=== PATIENT | male | born 2000 | race Caucasian/White ===

== ENCOUNTER 2018-03-06 01:48 | Emergency (ER) | payer OTHER ==
[2018-03-06] MEDS ORDERED: Lidocaine 2% PF * 5 ML VIAL ONE (02:21)
[2018-03-06] MEDS ORDERED: PROCHLORPERAZINE INJ 5 MG/ML 2 ML VIAL ONE (02:23)
[2018-03-06] MEDS ORDERED: HYDROmorphone INJ1* 1 MG/ML SYRINGE ONE (02:23)
--- NOTE | 2018-03-06 02:23 | ED ---
Lower Extremity - HPI Summary HPI Summary: This pt is a 17 y/o male presenting to [facility] via EMS for laceration on left fifth toe today. Pt reports he was cutting wood with an axe when he swung the axe and hit his left foot. Pt notes he was wearing shoes and the axe went through the shoe, sustaining a laceration on left fifth toe. Pt denies any other injuries. Denies any PMHx. - History of Current Complaint Chief Complaint: EDExtremityLower Stated Complaint: TOE INJURY Time Seen by Provider: 03/06/18 02:10 Hx Obtained From: Patient Mechanism Of Injury: Other - cut by an axe Onset of Pain: Immediate Onset/Duration: Minutes Severity Currently: Moderate Pain Intensity: 7 Pain Scale Used: 0-10 Numeric Timing: Lasting Hours Location: Is Discrete @ - left fifth toe Character Of Pain: Aching Associated Signs And Symptoms: Positive: Negative Aggravating Factor(s): Nothing Alleviating Factor(s): Nothing Related History: Other - while cutting wood cut toe with axe - Allergies/Home Medications Allergies/Adverse Reactions: Allergies Allergy/AdvReac Type Severity Reaction Status Date / Time No Known Allergies Allergy Verified 03/06/18 01:53 PMH/Surg Hx/FS Hx/Imm Hx Endocrine/Hematology History: Denies: Hx Diabetes Cardiovascular History: Denies: Hx Hypertension Infectious Disease History: No Infectious Disease History: Denies: Traveled Outside the [place] in Last 30 Days - Family History Known Family History: Negative: Cardiac Disease, Hypertension, Diabetes - Social History Alcohol Use: Occasionally Substance Use Type: Reports: None Smoking Status (MU): Current Some Day Smoker Review of Systems Negative: Fever, Chills Cardiovascular: Negative Respiratory: Negative Gastrointestinal: Negative Skin: Other - POS: laceration on left pinky toe All Other Systems Reviewed And Are Negative: Yes Physical Exam - Summary Physical Exam Summary: VITAL SIGNS: Reviewed. GENERAL: Patient is a well-developed and nourished male who is lying comfortable in the stretcher. Patient is not in any acute respiratory distress. HEAD AND FACE: No signs of trauma. No ecchymosis, hematomas or skull depressions. No sinus tenderness. EYES: PERRLA, EOMI x 2, No injected conjunctiva, no nystagmus. EARS: Hearing grossly intact. Ear canals and tympanic membranes are within normal limits. MOUTH: Oropharynx within normal limits. NECK: Supple, trachea is midline, no adenopathy, no JVD, no carotid bruit, no c- spine tenderness, neck with full ROM. CHEST: Symmetric, no tenderness at palpation LUNGS: Clear to auscultation bilaterally. No wheezing or crackles. CVS: Regular rate and rhythm, S1 and S2 present, no murmurs or gallops appreciated. ABDOMEN: Soft, non-tender. No signs of distention. EXTREMITIES: LLE: Laceration over the tip of the left fifth toe with avulsion/ amputation of the distal phalanx. Approximate 2 inch laceration extending from the sole of the left foot through the 4t interdigital space to the dorsum of the foot. NEURO: Alert and oriented x 3. No acute neurological deficits. Speech is normal and follows commands. SKIN: Dry and warm Triage Information Reviewed: Yes Vital Signs On Initial Exam: Initial Vitals Temp Pulse Resp BP Pulse Ox 99.3 F 84 16 140/93 97 03/06/18 01:49 03/06/18 01:49 03/06/18 01:49 03/06/18 01:49 03/06/18 01:49 Vital Signs Reviewed: Yes Procedures - Laceration/Wound Repair 1 Location: lower extremity - left fifth toe Anesthesia: Digital - digital block, 2.0%, Lido Length, Depth and Shape: Avulse piece irrigated and sutured back to the left fifth toe. Laceration/Wound Explored: clean Suture Type: Prolene - 4-O Number of Sutures: 8 2 Location: lower extremity - laceration on fourth interdigital space Anesthesia: 2.0%, Lido Length, Depth and Shape: 2 inches in length Laceration/Wound Explored: clean Suture Type: Prolene - 3-O Number of Sutures: 6 Diagnostics - Vital Signs Vital Signs Temp Pulse Resp BP Pulse Ox 03/06/18 01:49 99.3 F 84 16 140/93 97 - Laboratory Lab Statement: Any lab studies that have been ordered have been reviewed, and results considered in the medical decision making process. - Radiology Left foot XR Radiology Interpretation Completed By: ED Physician Summary of Radiographic Findings: XR shows digital fracture of left fifth distal phalanx. Lower Extremity Course/Dx - Course Assessment/Plan: Pt is a 17 y/o male who presents to the ED via EMS for laceration on left fifth toe today. Pt reports he was cutting wood with an axe when he swung the axe and hit his left foot. Pt notes he was wearing shoes and the axe went through the shoe, sustaining a laceration on left fifth toe. Pt denies any other injuries. Denies any PMHx. In the ED course the pt was given compazine, dilaudid, Keflex. Left foot XR shows fracture of the left fifth distal phalanx. Pending official radiology report. I performed two laceration repairs. With digital block and 2% lidocaine, the avulse piece was irrigated and sutured back to the left fifth toe, requiring 8 stitches of prolene 4-O. Two inch laceration on fourth interdigital space required 6 stitches with prolene 3-O. Pt tolerated the procedure well. Please see procedure note. Pt was given crutches to ambulate. He was given instructions to not bear weight, use crutches, keep wound dry, and not wear shoes. Pt will be discharged home with follow up from [facility] on 03/09/18, for wound check. He was given prescriptions for Keflex and Motrin. Pt was given instructions to return to the ED for any new or worsening symptoms. Dx: left fifth toe laceration with avulsion, left foot laceration, fracture of left fifth toe. - Diagnoses Provider Diagnoses: Laceration of fifth toe, left, Avulsion of toe, Laceration of left foot, Fracture of fifth toe, left, open Discharge - Sign-Out/Discharge Documenting (check all that apply): Patient Departure - Discharge home - Discharge Plan Condition: Stable Disposition: HOME Prescriptions: Cephalexin CAP* [Keflex CAP*] 500 mg PO QID #30 cap Ibuprofen TAB* [Motrin TAB* 800 MG] 800 mg PO Q6H PRN #30 tab PRN Reason: Pain (Dental) Patient Education Materials: Care For Your Stitches (ED), Laceration (ED), Toe Fracture (ED), Skin Avulsion (ED) Forms: *School Release Referrals: [facility] [Outside] Additional Instructions: Follow up with [facility] on 03/09/18, for wound re-check. No weight bearing. Use crutches to ambulate. Do not use shoes. Keep the wound dry. RETURN TO EMERGENCY DEPARTMENT FOR ANY NEW OR WORSENING SYMPTOMS. - Attestation Statements Document Initiated by Scribe: Yes Documenting Scribe: Nicole Cloud Provider For Whom Scribe is Documenting (Include Credential): Sallie Mariano MD Scribe Attestation: Nicole Nash, scribed for Sallie Mariano MD on 03/06/18 at 0402.
[2018-03-06] MEDS ORDERED: HYDROmorphone INJ* 2 MG/ML CARPUJECT SYRINGE IM ONE (02:31)
[2018-03-06] MEDS ORDERED: PROCHLORPERAZINE INJ 5 MG/ML 2 ML VIAL IM ONE (02:34)
[2018-03-06] MEDS ORDERED: Cephalexin CAP* 500 MG PO ONE (02:58)
[2018-03-06 04:15] VITALS: BP 129/81
== END 2018-03-06 04:10 | disposition home or self-care (01) ==
LOC: ED 01:48
DX: S92.532B Displaced fracture of distal phalanx of left lesser toe(s), initial encounter for open fracture (principal); W27.0XXA Contact with workbench tool, initial encounter; Y93.89 Activity, other specified; Y92.89 Other specified places as the place of occurrence of the external cause; F17.200 Nicotine dependence, unspecified, uncomplicated
CPT/HCPCS: 12002; 96372; 99283; A9270-GY; J0780; J1170

== ENCOUNTER 2018-03-07 23:20 | Observation (INO) | payer OTHER ==
[2018-03-07] MEDS ORDERED: ceFAZolin 1 GM ADVAN(*) 1 GM in NS 0.9% 50 ML* 50 ML IVPB ONE (23:51)
--- NOTE | 2018-03-08 | ED ---
Lower Extremity - HPI Summary HPI Summary: This patient is a 17 year old M presenting to [facility] accompanied by friend with a chief complaint of left pinky toe pain that began 2 days ago. Patient states the pain began upon chopping his toe when trying to make an architecture model. The patient rates the pain 5/10 in severity. Symptoms aggravated by movement. Symptoms alleviated by nothing. Patient reports numbness in the toe. Patient was seen here 2 days ago after the trauma, and received stitches and an x-ray. Patient states he has been unable to take his prescribed antibiotics as the clinic was closed. - History of Current Complaint Chief Complaint: EDLacSutureRecheck Stated Complaint: LEFT FOOT INJURY 2 DAYS AGO/\RECHECK Time Seen by Provider: 03/07/18 23:46 Hx Obtained From: Patient Mechanism Of Injury: Penetrating Trauma Onset of Pain: Immediate, Post Accident Onset/Duration: Days Severity Initially: Moderate Severity Currently: Moderate Pain Intensity: 5 Pain Scale Used: 0-10 Numeric Timing: Constant Location: Is Discrete @ - Left pinky toe Associated Signs And Symptoms: Positive: Other - Positive numbness of the toe Aggravating Factor(s): Movement Alleviating Factor(s): Nothing Able to Bear Weight: No - Allergies/Home Medications Allergies/Adverse Reactions: Allergies Allergy/AdvReac Type Severity Reaction Status Date / Time No Known Allergies Allergy Verified 03/06/18 01:53 PMH/Surg Hx/FS Hx/Imm Hx Previously Healthy: Yes Endocrine/Hematology History: Denies: Hx Diabetes Cardiovascular History: Denies: Hx Hypertension Infectious Disease History: No Infectious Disease History: Denies: Traveled Outside the [place] in Last 30 Days - Family History Known Family History: Negative: Cardiac Disease, Hypertension, Diabetes - Social History Occupation: Student Lives: Dormitory/Roommates Alcohol Use: Occasionally Hx Substance Use: No Substance Use Type: Reports: None Hx Tobacco Use: Yes Smoking Status (MU): Current Some Day Smoker Review of Systems Positive: Other - Positive left pinky toe pain Positive: Numbness All Other Systems Reviewed And Are Negative: Yes Physical Exam - Summary Physical Exam Summary: Appearance: Well-appearing, Well-nourished, lying in bed comfortable Skin: Warm, dry, no obvious rash Eyes: sclera anicteric, no conjunctival pallor ENT: mucous membranes moist Neck: deferred Respiratory: No signs of respiratory distress Cardiovascular: Appears well perfused, pulses are nml Abdomen: deferred Musculoskeletal: Moving all 4 extremities without obvious discomfort. Sutures are in place. No drainage from wound around sutures. Swelling and erythema on the dorsum of the foot extending from the wound to fdc up the foot. Neurological: Awake and alert, mentation is normal, speech is fluent and appropriate Psychiatric: affect is normal, does not appear anxious or depressed Triage Information Reviewed: Yes Vital Signs On Initial Exam: Initial Vitals Temp Pulse Resp BP Pulse Ox 98.9 F 64 18 134/92 96 03/07/18 23:21 03/07/18 23:21 03/07/18 23:21 03/07/18 23:21 03/07/18 23:21 Vital Signs Reviewed: Yes Diagnostics - Vital Signs Vital Signs Temp Pulse Resp BP Pulse Ox 03/07/18 23:21 98.9 F 64 18 134/92 96 - Laboratory Result Diagrams: 03/07/18 23:53 03/07/18 23:53 Lab Statement: Any lab studies that have been ordered have been reviewed, and results considered in the medical decision making process. Lower Extremity Course/Dx - Course Course Of Treatment: This patient is a 17 year old M presenting to [facility] accompanied by friend with a chief complaint of left pinky toe pain that began 2 days ago. Patient was seen here 2 days ago after the trauma, and received stitches and an x-ray. Patient states he has been unable to take his prescribed antibiotics as the clinic was closed. Physical Exam Findings: Sutures are in place. No drainage from wound around sutures. Swelling and erythema on the dorsum of the foot extending from the wound to fdc up the foot. Bloodwork obtained. In the ED course the patient was given cefazolin. Consult with Dr. Monaco (orthopedics) at 0001. He recommends the stitches be removed, the toe be soaked in warm soapy water, IV antibiotics given, and he will follow up with the patient tomorrow morning. Consult with Dr. Brooks (hospitalist) at 0008. He agreed to admit the patient for further evaluation. The patient is agreeable with this plan. - Diagnoses Provider Diagnoses: Infected wound - Physician Notifications Discussed Care Of Patient With: Jack Monaco Time Discussed With Above Provider: 00:01 Instructed by Provider To: Other - Consult with Dr. Monaco (orthopedics) at 0001. He recommends the stitches be removed, the toe be soaked in warm soapy water, and he will follow up with the patient tomorrow morning. Consult with Dr. Brooks (hospitalist) at 0008. He agreed to admit the patient for further evaluation. Discharge - Sign-Out/Discharge Documenting (check all that apply): Patient Departure - [place] [facility] [place]charge Plan Condition: Stable Disposition: ADMITTED TO [facility] - Billing Disposition and Condition Condition: STABLE Disposition: Admitted to [facility] - Attestation Statements Document Initiated by Hamibe: Yes Documenting Scribe: Fernanda Hartman Provider For Whom Luc is Documenting (Include Credential): Dr. Franklin Mcduffie MD Scribe Attestation: IFernanda, scribed for Dr. Franklin Mcduffie MD on 03/08/18 at 0250. Scribe Documentation Reviewed: Yes Provider Attestation: The documentation as recorded by the Fernanda silva accurately reflects the service I personally performed and the decisions made by me, Dr. Franklin Mcduffie MD
[2018-03-08 00:02] LABS: ABS Basophils 0 10^3/ul (0-0.2); ABS Eosinophils 0.2 10^3/ul (0-0.6); ABS Monocytes 0.5 10^3/ul (0-0.8); ABS Neutrophils 4.8 10^3/ul (1.5-7.7); ABS Nucleated RBC 0 10^3/ul; Hematocrit 40 % (42-52); Hemoglobin 13.6 g/dl (14.0-18.0); Lymphocyte % 35.4 % (25-47); Mean Corpuscular HGB Conc 34 g/dl (31-36); Mean Corpuscular Hemoglobin 31 pg (27-31); Mean Corpuscular Volume 89 fL (80-94); Mean Platelet Volume 7.9 fL (7.4-10.4); Nucleated Red Blood Cells % 0.1; Platelet Count 232 10^3/ul (150-450); Red Blood Count 4.43 10^6/ul (4.00-5.40); Red Cell Distribution Width 14 % (10.5-15); White Blood Count 8.6 10^3/ul (3.5-10.8)
[2018-03-08] MEDS ORDERED: NS 0.9% 50 ML* 50 ML ONE (00:02)
[2018-03-08] MEDS ORDERED: Bupivacaine 0.5% W/EPI SDV* 30 ML VIAL ONE (00:08)
[2018-03-08] MEDS ORDERED: ceFAZolin 1 GM in Dextrose (*) 1 GM/50 ML BAG IVPB ONE (00:10)
[2018-03-08] MEDS ORDERED: Lidocaine 2% EPI 1:200000 MPF*10-20 ML VIAL ONE (00:10)
[2018-03-08] MEDS ORDERED: Ibuprofen TAB* 800 MG PO PRN (00:14)
[2018-03-08] MEDS ORDERED: ED ONCE IVPB ONE (00:15)
[2018-03-08] MEDS ORDERED: CEFAZOLIN 1 GM IVPB ONE (00:15)
[2018-03-08] MEDS ORDERED: [UNRECOGNIZED DRUG - OTHER] IVPB ONE (00:15)
[2018-03-08 00:18] LABS: EGFR Non-African American 70.5 (>60)
[2018-03-08] MEDS ORDERED: ceFAZolin 1 GM ADVAN(*) 1 GM in NS 0.9% 50 ML* 50 ML IVPB SCH (01:00)
[2018-03-08] MEDS: ceFAZolin 1 GM in Dextrose (*) 1 GM/50 ML BAG IVPB SCH ×3 (05:44→17:28)
[2018-03-08] MEDS ORDERED: NS 0.9% w/ 20 Meq KCL 1000 ML* 1,000 ML IV SCH (09:00)
[2018-03-08] MEDS: NS 0.9% 1000 ML* 1,000 ML IV SCH ×2 (12:02→21:44)
--- NOTE | 2018-03-08 12:06 | PN ---
Subjective Date of Service: 03/08/18 Interval History: Patient reports the pain is better controlled today. Pain is currently /. He denies any fever/chills. No n/v/d. Objective Active Medications: Acetaminophen (Tylenol Tab*) 650 mg PO Q4H PRN PRN Reason: FEVER/HEADACHE Cefazolin Sodium/Dextrose (Kefzol 1 Gm In Dextrose Duplex (*)) 1 gm in 50 mls @ 200 mls/hr IVPB Q6H [facility] Last Admin: 03/08/18 11:42 Dose: 200 mls/hr Sodium Chloride (Ns 0.9% 1000 Ml*) 1,000 mls @ 125 mls/hr IV PER RATE [facility] Ibuprofen (Motrin Tab*) 800 mg PO Q6H PRN PRN Reason: PAIN (DENTAL) Last Admin: 03/08/18 08:54 Dose: 800 mg Vital Signs - 8 hr 03/08/18 03/08/18 03/08/18 04:18 07:40 08:00 Temperature 98.4 F 97.6 F Pulse Rate 55 43 Respiratory 16 16 16 Rate Blood Pressure 114/68 106/53 (mmHg) O2 Sat by Pulse 98 100 Oximetry 03/08/18 11:28 Temperature 98.6 F Pulse Rate 54 Respiratory 16 Rate Blood Pressure 108/52 (mmHg) O2 Sat by Pulse 100 Oximetry Oxygen Devices in Use Now: None Appearance: well developed 17 yo male laying in bed A+O x3 in NAD Eyes: No Scleral Icterus, PERRLA Ears/Nose/Mouth/Throat: NL Teeth, Lips, Gums, Mucous Membranes Moist Respiratory: Symmetrical Chest Expansion and Respiratory Effort, Clear to Auscultation Cardiovascular: NL Sounds; No Murmurs; No JVD, RRR, No Edema Abdominal: NL Sounds; No Tenderness; No Distention Extremities: - - left toe with CD + I dressing - ortho PA just evaluated toe - did not remove dressing. Lines/Tubes/Other Access: Clean, Dry and Intact Peripheral IV Result Diagrams: 03/07/18 23:53 03/07/18 23:53 Assess/Plan/Problems-Billing Assessment: 17 yo male with no significant PMH that presented to the ER on with c/o of left toe pinky pain that began two days ago after he dropped an axe on his toes in which he received stitches for the day of trauma, now returning increase pain, numbness. He was also prescribed abx initially which he did not start at home. Admitted to the hospitalist service for IV abx and ortho consult. - Patient Problems (1) Injury of left toe Comment: - left 5th toe cellulitis/infected - Stitches werer removed in ED - Awaiting Ortho consult - - continue IV abx with cefazolin - Pain control - DC NSAID d/t BASIL - start APAP. (2) Acute renal failure Comment: - creatinine 1.3 - possible secondary to NSAID use vs dehydration - stop NSAIDs - start Aceraminophen - Give NS 125 ml/hr - Repeat BMP this afternoon (3) DVT prophylaxis Comment: SCDs Status and Disposition: inpatient with left 5th toe trauma with infection receiving IV ABx
--- NOTE | 2018-03-08 13:50 | HP ---
HISTORY AND PHYSICAL: DATE OF ADMISSION: 03/08/18 CHIEF COMPLAINT: Left toe swelling. 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 He was seen in the ER that day and had x-ray that showed a distal phalanx fracture and partial evulsion of the tip of the toe. He had sutures placed in the toe and down into the webspace between the 4th and 5th toes with a total of 14 sutures. The axe cut through his shoe and into his foot, so there was a concern about infection and he was sent home with Keflex, which he never filled in the pharmacy. The day of admission, he returned to the ER because of numbness in the 5th toe and swelling in the left foot lateral aspect as well as some redness. In the ER, he was reevaluated by a physician and they spoke to Orthopedics foundation stage teacher. Sutures were removed to allow any infection to be released from the wound. We were asked to admit the patient to facilitate orthopedic evaluation. PAST MEDICAL HISTORY: None. MEDICATIONS: None. ALLERGIES: None. FAMILY HISTORY: His mother and father are well. His paternal grandfather and his paternal grandmother as well for unknown reasons. Maternal grandparents are alive at this time. SOCIAL HISTORY: He is a student in [place] in [place] [employer]. He smokes cigarettes off and on daily. He drinks alcohol socially. No recreational drugs. He is single. He is originally from [place] [facility] [place]. He has no siblings. His mother lives in [place] [facility] [place], his father lives in [facility]. REVIEW OF SYSTEMS: The patient denies any fevers, weight loss, or night sweats. The patient denies any cough, hemoptysis, shortness of breath. The patient denies any chest pain or palpitations. Remainder of 14-point review of systems is negative other than what is mentioned in HPI. PHYSICAL EXAMINATION GENERAL: He is alert, no acute distress. VITAL SIGNS: Temperature is 36.9, pulse 61, respirations 18, blood pressure is 132/52, O2 sats 98% on room air. HEENT: Head is normocephalic, atraumatic. Sclerae anicteric. Pupils equal, round, and reactive to light and accommodation. Oropharynx is moist. No lesions. NECK: No JVD. No carotid bruit or thyromegaly. LUNGS: Clear to auscultation and percussion bilaterally. HEART: Regular rate and rhythm without murmurs or gallops. ABDOMEN: Soft and nontender. Positive bowel sounds. No hepatosplenomegaly. EXTREMITIES: There is no ankle edema. There is edema and erythema in the lateral aspect of the left forefoot. The left 5th toe is partially evulsed. Distally there is a laceration that extends from near down to the webspace between the 4th and 5th toes, which does not show any active purulent discharge. NEUROLOGIC: Cranial nerves II through XII are intact. Motor strength is 5/5 throughout. Deep tendon reflexes are symmetric. LABORATORY DATA: Sodium 139, potassium 3.9, chloride 106, bicarb 27, BUN 26, creatinine 1.31, glucose was 96. White count 8.6, hemoglobin 13.6, hematocrit 40.7, platelets 232. ASSESSMENT AND PLAN: The patient has cellulitis in his left foot in 5th toe due to trauma and laceration. The patient will be admitted to the surgical floor and have intravenous Kefzol started to treat presumed staph or strep. There are cases of pseudomonal infections that come from cutting through the shoes into the foot and if he does not respond to Kefzol, we should add pseudomonal coverage with ciprofloxacin. Dr. Monaco will see the patient in the morning and consider a washout or debridement of the wound. The patient's creatinine is also mildly elevated, there is no other baselines to look at. He may be a bit dehydrated and we can recheck this after some hydration. He also may have early kidney disease on a genetic basis. I will check a urinalysis for active sediment. DVT prophylaxis will be early ambulation. Code status is full. [id number]/[facility] #: [id number] [facility]
[2018-03-08 13:54] LABS: Urine Appearance Clear; Urine Blood Negative (Negative); Urine Color Yellow; Urine Ketones Negative (Negative); Urine Protein Negative (Negative); Urine Specific Gravity 1.026 (1.010-1.030); Urine Urobilinogen Negative (Negative)
--- NOTE | 2018-03-08 15:21 | CONS ---
CONSULTATION REPORT: DATE OF CONSULT: 03/08/18 SURGEON: Jack Monaco MD CHIEF COMPLAINT: Left small toe. HISTORY OF PRESENT ILLNESS: Mr. Donahue is a 17-year-old who hit his left small toe approximately 2 days ago with an axe. He did present to the emergency room and had some sutures placed and was started on antibiotics; however, last night he noticed some increased pain and redness of the toe and came back to the emergency room where it was noted to be infected. They did remove the stitches in the ER and he was admitted. He denies any fevers, shakes or chills. PAST MEDICAL HISTORY: Denies. PAST SURGICAL HISTORY: None. FAMILY HISTORY: Denies. 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 REVIEW OF SYSTEMS: A complete 14-point review of systems was reviewed with the patient and was all negative or not noncontributory. Denies history of DVT, PE , hepatitis, HIV or anesthesia problems. PHYSICAL EXAMINATION: General: He is well developed, well nourished, in no acute distress. HEENT: Normocephalic, atraumatic. Neck: Supple. No palpable lymph nodes. Cardio: Regular rate and rhythm. Musculoskeletal: Left lower extremity, he is able to move all the toes. He has some diminished sensation over the left 5th toe. There is no active drainage from the toe. There is some erythema and swelling and is very tender to palpation, but there is no redness or streaking up the foot. He has 2+ dorsalis pedis pulse. He is able to dorsiflex and plantar flex. ASSESSMENT: A 17-year-old with an infected left 5th toe after an injury with an axe 2 days ago. PLAN: 1. Continue IV antibiotics. 2. He will be heel weightbearing only in the left lower extremity. 3. Daily warm soapy soaks to the left foot and dressing changes. 4. We will continue to follow closely. NELI VANG [id number]/[facility] #: [id number] ASHANTI
[2018-03-08 17:53] LABS: EGFR Non-African American 84.5 (>60)
[2018-03-09] MEDS: ceFAZolin 1 GM in Dextrose (*) 1 GM/50 ML BAG IVPB SCH ×3 (00:11→11:45)
[2018-03-09] MEDS: Acetaminophen TAB* 325 MG PO PRN ×2 (03:47→07:57)
[2018-03-09 05:32] LABS: ABS Basophils 0 10^3/ul (0-0.2); ABS Eosinophils 0.2 10^3/ul (0-0.6); ABS Lymphocytes 2.9 10^3/ul (1.0-4.8); ABS Monocytes 0.4 10^3/ul (0-0.8); ABS Neutrophils 2.9 10^3/ul (1.5-7.7); ABS Nucleated RBC 0 10^3/ul; Eosinophil % 3.5 % (0-6); Hematocrit 39 % (42-52); Hemoglobin 13.2 g/dl (14.0-18.0); Lymphocyte % 44.2 % (25-47); Mean Corpuscular HGB Conc 34 g/dl (31-36); Mean Corpuscular Hemoglobin 30 pg (27-31); Mean Corpuscular Volume 89 fL (80-94); Nucleated Red Blood Cells % 0.1; Platelet Count 188 10^3/ul (150-450); Red Blood Count 4.35 10^6/ul (4.00-5.40); Red Cell Distribution Width 14 % (10.5-15); White Blood Count 6.5 10^3/ul (3.5-10.8)
[2018-03-09] MEDS: NS 0.9% 1000 ML* 1,000 ML IV SCH (05:39)
[2018-03-09 05:47] LABS: EGFR Non-African American 97.4 (>60)
[2018-03-09] MEDS ORDERED: traMADol TAB* 50 MG PO PRN (08:46)
--- NOTE | 2018-03-09 08:47 | PN ---
Subjective Date of Service: 03/09/18 Interval History: Pt reports he slept well overnight. Reports mendoza in toe when he moves his foot otherwise comfortable at rest. No fevers or chills. Denies nausea, diarrhea. Objective Active Medications: Acetaminophen (Tylenol Tab*) 650 mg PO Q4H PRN PRN Reason: FEVER/HEADACHE Last Admin: 03/09/18 07:57 Dose: 650 mg Cefazolin Sodium/Dextrose (Kefzol 1 Gm In Dextrose Duplex (*)) 1 gm in 50 mls @ 200 mls/hr IVPB Q6H [facility] Last Admin: 03/09/18 05:38 Dose: 200 mls/hr Sodium Chloride (Ns 0.9% 1000 Ml*) 1,000 mls @ 125 mls/hr IV PER RATE [facility] Last Admin: 03/09/18 05:39 Dose: 125 mls/hr Vital Signs - 8 hr 03/09/18 03/09/18 03:39 07:19 Temperature 97.6 F 97.3 F Pulse Rate 49 47 Respiratory 18 18 Rate Blood Pressure 103/63 108/55 (mmHg) O2 Sat by Pulse 99 99 Oximetry Oxygen Devices in Use Now: None Appearance: well developed 17 yo male A+O x3 in NAD Eyes: No Scleral Icterus, PERRLA Ears/Nose/Mouth/Throat: Mucous Membranes Moist Neck: NL Appearance and Movements; NL JVP Respiratory: Symmetrical Chest Expansion and Respiratory Effort, Clear to Auscultation Cardiovascular: NL Sounds; No Murmurs; No JVD, RRR, No Edema Abdominal: NL Sounds; No Tenderness; No Distention Extremities: - - left 5th toe - generalized ecchymosis noted with anterior laceration - no drainage noted. No sensation in tip of toe Skin: No Nodules or Sclerosis Neurological: Alert and Oriented x 3 Lines/Tubes/Other Access: Clean, Dry and Intact Peripheral IV Nutrition: Taking PO's Result Diagrams: 03/09/18 05:11 03/09/18 05:11 Assess/Plan/Problems-Billing Assessment: 17 yo male with no significant PMH that presented to the ER on with c/o of left toe pinky pain that began two days ago after he dropped an axe on his toes in which he received stitches for the day of trauma, now returning increase pain, numbness. He was also prescribed abx initially which he did not start at home. Admitted to the hospitalist service for IV abx and ortho consult. - Patient Problems (1) Injury of left toe Comment: - left 5th toe open fracture - Stitches were removed in ED - Appreciate Ortho consult - Seen by Dr. Avitia - recommendation to wrap toe with surgical boot - rest over the week with po abx and f/u in Ortho office next week. - continue IV abx with cefazolin - will switch to Keflex on DC - Pain control - controlled with APAP (2) Acute renal failure Comment: - Resolved with IVFs - creatinine 1.3 - possible secondary to NSAID use vs dehydration (3) DVT prophylaxis Comment: SCDs Status and Disposition: inpatient with left 5th toe trauma with open fracture. Plan for DC to home f/u ortho next week. Patient is a [employer] student from [employer]
[2018-03-09] MEDS ORDERED: Lactobacillus Acidophilus* 1 TAB PO SCH (09:00)
--- NOTE | 2018-03-09 09:50 | PN ---
Progress Note - Progress Note Date of Service: 03/09/18 SOAP: Subjective: []Patient seen and examined at bedside. He feels well with little pain of the left 5th toe. No other complaints Objective: []General: Well appearing, NAD LLE: Left 5th digit distal medial aspect is dusky with decreased sensation and difficult to determine capillary refill due to coloration. Webspace with laceration. No drainage from lacerations and no erythema of the toe or streaking proximally. DP2+. Assessment: [] inpatient with left 5th toe trauma with open fracture. Plan: []Heel wb, needs boot Toe laceration to be kept clean and dry. No soaks needed Betadyne paint to webspace Fu Dr Avitia next week Vital Signs Temp 97.3 F 03/09/18 07:19 Pulse 47 03/09/18 07:19 Resp 18 03/09/18 07:19 BP 108/55 03/09/18 07:19 Pulse Ox 99 03/09/18 07:19 Intake & Output 03/08/18 03/09/18 03/09/18 18:59 06:59 18:59 Intake Total 600 2907 Output Total 400 1250 Balance 200 1657 Intake: IV Fluids 1932 NS (0.9%) 1932 IVPB 175 ABX - CEFAZOLIN 175 Oral 600 800 Output: Urine 400 1250 Laboratory Last Values WBC 6.5 10^3/ul (3.5-10.8) 03/09/18 05:11 RBC 4.35 10^6/ul (4.00-5.40) 03/09/18 05:11 Hgb 13.2 g/dl (14.0-18.0) L 03/09/18 05:11 Hct 39 % (42-52) L 03/09/18 05:11 MCV 89 fL (80-94) 03/09/18 05:11 MCH 30 pg (27-31) 03/09/18 05:11 MCHC 34 g/dl (31-36) 03/09/18 05:11 RDW 14 % (10.5-15) 03/09/18 05:11 Plt Count 188 10^3/ul (150-450) 03/09/18 05:11 MPV 8.0 fL (7.4-10.4) 03/09/18 05:11 Neut % (Auto) 44.9 % (38-83) 03/09/18 05:11 Lymph % (Auto) 44.2 % (25-47) 03/09/18 05:11 [place] % (Auto) 6.9 % (0-7) 03/09/18 05:11 Eos % (Auto) 3.5 % (0-6) 03/09/18 05:11 Baso % (Auto) 0.5 % (0-2) 03/09/18 05:11 Absolute Neuts (auto) 2.9 10^3/ul (1.5-7.7) 03/09/18 05:11 Absolute Lymphs (auto) 2.9 10^3/ul (1.0-4.8) 03/09/18 05:11 Absolute Monos (auto) 0.4 10^3/ul (0-0.8) 03/09/18 05:11 Absolute Eos (auto) 0.2 10^3/ul (0-0.6) 03/09/18 05:11 Absolute Basos (auto) 0 10^3/ul (0-0.2) 03/09/18 05:11 Absolute Nucleated RBC 0 10^3/ul 03/09/18 05:11 Nucleated RBC % 0.1 03/09/18 05:11 Sodium 139 mmol/L (135-145) 03/09/18 05:11 Potassium 4.1 mmol/L (3.5-5.0) 03/09/18 05:11 Chloride 107 mmol/L (101-111) 03/09/18 05:11 Carbon Dioxide 26 mmol/L (22-32) 03/09/18 05:11 Anion Gap 6 mmol/L (2-11) 03/09/18 05:11 BUN 15 mg/dL (6-24) 03/09/18 05:11 Creatinine 0.99 mg/dL (0.67-1.17) 03/09/18 05:11 Est GFR ( Amer) 117.8 (>60) 03/09/18 05:11 Est GFR (Non-Af Amer) 97.4 (>60) 03/09/18 05:11 BUN/Creatinine Ratio 15.2 (8-20) 03/09/18 05:11 Glucose 99 mg/dL (70-100) 03/09/18 05:11 Calcium 8.9 mg/dL (8.6-10.3) 03/09/18 05:11 Urine Color Yellow 03/08/18 12:45 Urine Appearance Clear 03/08/18 12:45 Urine pH 5.0 (5-9) 03/08/18 12:45 Ur Specific [place] 1.026 (1.010-1.030) 03/08/18 12:45 Urine Protein Negative (Negative) 03/08/18 12:45 Urine Ketones Negative (Negative) 03/08/18 12:45 Urine Blood Negative (Negative) 03/08/18 12:45 Urine Nitrate Negative (Negative) 03/08/18 12:45 Urine Bilirubin Negative (Negative) 03/08/18 12:45 Urine Urobilinogen Negative (Negative) 03/08/18 12:45 Ur Leukocyte Esterase Negative (Negative) 03/08/18 12:45 Urine Glucose Negative (Negative) 03/08/18 12:45
--- NOTE | 2018-03-09 15:19 | CONS ---
CONSULTATION REPORT: DATE OF CONSULT: 03/09/18 HISTORY OF PRESENT ILLNESS: Abdoulaye is examined today on the short-stay surgical service. He was admitted day and half ago with some increased to his left 5th toe. Evidently, on 03/06/18, he was working in the [employer] when he was trying to split some piece of wood with a small axe and injured his left 5th toe. He shaved off the medial aspect of the distal toe, which was repaired with some sutures in the emergency room. He was admitted a day and half ago for some IV antibiotics with some increased redness. Abdoulaye is a healthy 17-year-old with no medical issues. PHYSICAL EXAM: He does not have any purulence or drainage from his 5th toe. It is a sonny-flap distally closed with a proximal flap intact. There is some ecchymosis throughout the flap with vascular supply to the medial proximal portion. There is no purulence expressed. DIAGNOSTIC STUDIES: His radiograph shows a small nondisplaced split of the distal phalanx. ASSESSMENT AND PLAN: I have seen Abdoulaye today and do not believe that this currently needs to be amputated. A revision of the amputation would require significant shortening of the toe. I do not see any current evidence of infection and if he is on antibiotics and follow carefully, I believe he will be able to heal without a bone infection and then we will let this flap to clear itself as time goes on over the next week or so. I will see him in the office in 3 days' time. [id number]/[facility] #: [id number] ASHANTI
[2018-03-09 16:38] VITALS: BP 115/57
--- NOTE | 2018-03-10 11:20 | DS ---
DISCHARGE SUMMARY: DATE OF ADMISSION: 03/08/18 DATE OF DISCHARGE: 03/09/18 PROVIDER: Niki Friedman NP ATTENDING PHYSICIAN: Dr. Montez * (report dictated by Niki Friedman NP). PRIMARY CARE PROVIDER: [facility]. CONSULTING ORTHOPEDIC SURGEON: Dr. Avitia. DISCHARGE DIAGNOSES: 1. Small nondisplaced fracture of the distal phalanx, open fracture. 2. Acute kidney injury, suspect secondary to NSAIDs and dehydration. SECONDARY DIAGNOSIS: No previous past medical history. HISTORY OF PRESENT ILLNESS AND HOSPITAL COURSE: Mr. 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 He underwent sutures in the emergency department and was sent home on Keflex. He then returned to the emergency department on 03/08/18 complaining of left toe swelling and the sutures were removed and the patient was admitted to the hospitalist service for IV antibiotics and was seen in consultation by the Orthopedic surgical team, Dr. Avitia, who recommended no surgical intervention at this time. The plan will be to bandage the toe and foot, put in a surgical boot, and send home on antibiotics with followup at the end of the week with Dr. Avitia in his office. The patient's toe does appear to be slightly dusky with some ecchymosis and he has loss of sensation of the top of his toe. Orthopedic team does not believe this needs to be amputated at this time and a revision of the amputation requires significant shortening of the toe. There is no current evidence of infection and it is thought he will be able to heal the toe without bone infection. This will be monitored closely as an outpatient. Orthopedic team recommended Keflex on discharge, on which the patient will be sent home on. The patient has been on cefazolin IV and has responded well. In regards to the patient's acute kidney injury, suspect secondary to dehydration versus NSAID use. The patient was instructed to avoid NSAIDs. His renal function resolved with IV fluids. In regards to the patient's pain, he reports a little pain in his toe, this has been managed well with acetaminophen. DISCHARGE MEDICATIONS: 1. Keflex 500 mg p.o. 4 times a day x7 days. 2. Probiotic lactobacillus acidophilus 1 tab p.o. daily. 3. Acetaminophen 650 mg p.o. q.4 hours p.r.n., max daily dose 3000 mg. DISCHARGE PLAN: 1. Follow up with [facility] within 1 to 2 days. 2. Follow up with Dr. Avitia, orthopedic surgeon, 03/13/18 at 10:30 a.m. 3. The patient was instructed if he has any concerning symptoms of fever, chills, nausea, vomiting, severe diarrhea or any worsening pain, numbness, tingling to return to the emergency department as well as any worsening discoloration in his toe or foot. The patient is okay to bear weight on his heel. He has been given an orthopedic boot as well as the patient was instructed to drink lots of water and minimize his ambulation, elevating his foot frequently. The patient reports that he has a dinning [employer] in his dorm room. TIME SPENT: Approximately 60 minutes were spent on this discharge. NIKI FRIEDMAN, SAMIR [id number]/[facility] #: [id number] ASHANTI
== END 2018-03-09 17:25 | disposition home or self-care (01) ==
LOC: ED 23:20 → SSU 03-08 00:10 → INTOOBSV 03-08 00:10
PROVIDERS: ADMIT Internal Medicine; ATTEND Internal Medicine
DX: S92.535 Nondisplaced fracture of distal phalanx of left lesser toe(s) (principal); W22.8XXA Striking against or struck by other objects, initial encounter; Y92.9 Unspecified place or not applicable; N17.9 Acute kidney failure, unspecified; E86.0 Dehydration; Z72.0 Tobacco use
CPT/HCPCS: 36415; 80048; 81003; 85025; 86703; 96374; 96376; 99282; A9270-GY; G0378; J0690

== ENCOUNTER 2018-03-21 18:35 | Emergency (ER) | payer OTHER ==
--- OUTSIDE RECORDS SUMMARY | 2018-03-21 19:15 | XMS REPORT | Continuity of Care Document ---
:2000 External Reference #:[id number] Author Name Naun Light Care Team Providers Name Role Phone [facility] Primary Care Physician Unavailable Payers Type Date Identification Numbers Payment Provider Subscriber Policy Number: [id number] [employer] Student [employer] Abdoulaye Donahue PayID: [id number] [address] [place] [address] Advance Directives Description No Information Available Problems Description No Information Family History Description No Information Available Social History Type Date Description Comments Sex Male Lives With Alone Occupation Student ETOH Use Currently consumes alcohol Tobacco Use Start: Unknown Patient is a current smoker, smokes some days Smoking Status Reviewed: 03/13/18 Patient is a current smoker, smokes some days Exercise Type/Frequency Exercises regularly Allergies, Adverse Reactions, Alerts Description No Known Drug Allergies Medications Medication Date Status Form Strength Qnty SIG Indications Ordering Provider Cephalexin Active Capsules 500mg Sallie Mariano MD Ibu Active Tablets 800mg Sallie Mariano MD Probiotic Active Unknown Immunizations Description No Information Available Vital Signs Date Vital Result Comment 03/13/2018 11:07am Height 75 inches 6'3" Weight 180.00 lb Heart Rate 64 /min BP Systolic 118 mmHg BP Diastolic 82 mmHg Body Temperature 97.6 F Pain Level 3 BMI (Body Mass Index) 22.5 kg/m2 Height Percentile 97 % Weight Percentile 81st Results Description No Information Available Procedures Description No Information Available Encounters Description No Information Available Plan of Treatment Future Appointment(s):03/26/2018 8:30 am - Jack Avitia M.D. at [facility]
--- NOTE | 2018-03-21 19:40 | ED ---
Skin Complaint - HPI Summary HPI Summary: 17 male presents for wound check for a wound to left little toe. She states 2 weeks ago he cut the tip of the pinky. a couple days later it got infected. He he was admitted for IV antibiotics. He was consulted with orthopedic. He has been following up with ortho on . He states that today he noticed some bleeding from his foot. He states part of the scab feel off. He states there was some pus like drainage. He denies any redness or fever. He is not currently on antibiotics. - History of Current Complaint Chief Complaint: EDLacSutureRecheck Time Seen by Provider: 03/21/18 19:15 Stated Complaint: OPEN WOUND Pain Intensity: 3 - Additional Pertinent History Primary Care Physician: MILLA - Allergy/Home Medications Allergies/Adverse Reactions: Allergies Allergy/AdvReac Type Severity Reaction Status Date / Time No Known Allergies Allergy Verified 03/21/18 19:04 PMH/Surg Hx/FS Hx/Imm Hx Endocrine/Hematology History: Denies: Hx Diabetes Cardiovascular History: Denies: Hx Hypertension Sensory History: Denies: Hx Contacts or Glasses, Hx Hearing Aid Opthamlomology History: Denies: Hx Contacts or Glasses Infectious Disease History: No Infectious Disease History: Denies: Traveled Outside the [place] in Last 30 Days - Family History Known Family History: Negative: Cardiac Disease, Hypertension, Diabetes - Social History Alcohol Use: Occasionally Hx Substance Use: No Substance Use Type: Reports: None Hx Tobacco Use: Yes Smoking Status (MU): Never Smoked Tobacco Review of Systems Negative: Fever Negative: Chest Pain Negative: Shortness Of Breath Positive: Other - open wound left pinky toe All Other Systems Reviewed And Are Negative: Yes Physical Exam Triage Information Reviewed: Yes Vital Signs On Initial Exam: Initial Vitals Temp Pulse Resp BP Pulse Ox 98 F 95 14 125/77 98 03/21/18 19:04 03/21/18 19:04 03/21/18 19:04 03/21/18 19:04 03/21/18 19:04 Vital Signs Reviewed: Yes Appearance: Positive: Well-Appearing Skin: Positive: Other - 3cm black skin at tip of left pinky, on medial ascpect of left pinky toe is 1cm by 1/2cm of avulsed skin with no evidence of dehiscence or cellulitis, no drainage noted, old cellulitic area noted but area is not currently warm to touch Head/Face: Positive: Normal Head/Face Inspection Eyes: Positive: Normal, Conjunctiva Clear ENT: Positive: Pharynx normal Respiratory/Lung Sounds: Positive: Clear to Auscultation, Breath Sounds Present Cardiovascular: Positive: Normal, RRR Musculoskeletal: Positive: Strength/ROM Intact - left little toe, Other - good pulses Neurological: Positive: Normal Psychiatric: Positive: Normal Diagnostics - Vital Signs Vital Signs Temp Pulse Resp BP Pulse Ox 03/21/18 19:04 98 F 95 14 125/77 98 - Laboratory Lab Statement: Any lab studies that have been ordered have been reviewed, and results considered in the medical decision making process. Course/Dx - Course Course Of Treatment: 17 male presents for wound check for a wound to left little toe. She states 2 weeks ago he cut the tip of the pinky. a couple days later it got infected. He he was admitted for IV antibiotics. He was consulted with orthopedic. He has been following up with ortho on . He states that today he noticed some bleeding from his foot. He states part of the scab feel off. He states there was some pus like drainage. He denies any redness or fever. He is not currently on antibiotics. on exam 3cm black skin at tip of left pinky, on medial ascpect of left pinky toe is 1cm by 1/2cm of avulsed skin with no evidence of dehiscence or cellulitis, no drainage noted, old cellulitic area noted but area is not currently warm to touch. evaulated with dr sanchez who agrees that appears to be healing and lost its scab. placed a xeroform on the area and told to change it. told to follow up with ortho. patient understand and agrees with plan. - Differential Diagnoses - Skin Complaint Differential Diagnoses: Abscess, Cellulitis, Contact Dermatitis, Other - dehiscence - Diagnoses Provider Diagnoses: Healing wound Discharge - Sign-Out/Discharge Documenting (check all that apply): Patient Departure - Discharge Plan Condition: Good Disposition: HOME Patient Education Materials: Acute Wounds (ED) Referrals: No Primary Care Phys,NOPCP [Primary Care Provider] - Additional Instructions: change dressing once a day, check for any signs of infection such as spreading redness Follow up with ortho as scheduled, call office Friday to inform of visit here Return to ED if develop any spreading redness, fever, or any new or worsening symptoms - Billing Disposition and Condition Condition: GOOD Disposition: Home
[2018-03-21 19:58] VITALS: BP 102/60
== END 2018-03-21 19:45 | disposition home or self-care (01) ==
LOC: ED 18:35
DX: S91.105A Unspecified open wound of left lesser toe(s) without damage to nail, initial encounter (principal); W45.8XXA Other foreign body or object entering through skin, initial encounter; Y92.9 Unspecified place or not applicable
CPT/HCPCS: 99282

== ENCOUNTER 2018-06-24 19:15 | Observation (INO) | payer OTHER ==
[2018-06-24] MEDS ORDERED: NS 0.9% 1000 ML** 1,000 ML IV ONE (19:29)
--- NOTE | 2018-06-24 19:29 | ED ---
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 He does not remember the event, but thinks he had been playing basketball for about 10 minutes. He has no PMHx: sz. Denies: urinary incontinence, tongue bite. At bedside he states feeling very tired. Denies daily medications. Limited smoking, and ETOH. Denies street drugs. - History of Current Complaint Chief Complaint: EDSeizure Stated Complaint: SYNCOPE PER EMS Time Seen by Provider: 06/24/18 19:24 Hx Obtained From: Patient Onset/Duration: Sudden Onset, Resolved Current Severity: None Number of Seizures: 1 Pain Intensity: 0 Pain Scale Used: 0-10 Numeric Number of Episodes: 1 Syncope Context: Witnessed, Loss of Consciousness: Yes Alleviating: Spontanious Resolution Associated Signs and Symptoms: Positive: Memory Loss, Loss of Consciousness, Seizure. Negative: Incontinent Bladder/Bowel - Additional Pertinent History Primary Care Physician: MILLA - Allergy/Home Medications Allergies/Adverse Reactions: Allergies Allergy/AdvReac Type Severity Reaction Status Date / Time No Known Allergies Allergy Verified 03/21/18 19:04 Home Medications: Home Medications NK [No Home Medications Reported] 06/24/18 [History Confirmed 06/24/18] PMH/Surg Hx/FS Hx/Imm Hx Previously Healthy: Yes Endocrine/Hematology History: Denies: Hx Diabetes Cardiovascular History: Denies: Hx Hypertension Sensory History: Denies: Hx Contacts or Glasses, Hx Hearing Aid Opthamlomology History: Denies: Hx Contacts or Glasses Infectious Disease History: No Infectious Disease History: Denies: Traveled Outside the [place] in Last 30 Days - Family History Known Family History: Negative: Cardiac Disease, Hypertension, Diabetes Family History: neg: sz - Social History Occupation: Student Lives: Dormitory/Roommates Alcohol Use: Occasionally Hx Substance Use: No Substance Use Type: Reports: None Hx Tobacco Use: Yes Smoking Status (MU): Never Smoked Tobacco Review of Systems Positive: Fatigue. Negative: Other - neg: tongue-bite Negative: incontinence Neurological: Other - pos: sz, resolved Positive: Syncope All Other Systems Reviewed And Are Negative: Yes Physical Exam - Summary Physical Exam Summary: VITAL SIGNS: Reviewed. GENERAL: Patient is a well-developed and nourished MALE who is lying comfortable in the stretcher. Patient is not in any acute respiratory distress. HEAD AND FACE: No signs of trauma. No ecchymosis, hematomas or skull depressions. No sinus tenderness. EYES: PERRLA, EOMI x 2, No injected conjunctiva, no nystagmus. EARS: Hearing grossly intact. Ear canals and tympanic membranes are within normal limits. MOUTH: Oropharynx within normal limits. NECK: Supple, trachea is midline, no adenopathy, no JVD, no carotid bruit, no c- spine tenderness, neck with full ROM. CHEST: Symmetric, no tenderness at palpation LUNGS: Clear to auscultation bilaterally. No wheezing or crackles. CVS: Regular rate and rhythm, S1 and S2 present, no murmurs or gallops appreciated. ABDOMEN: Soft, non-tender. No signs of distention. No rebound, no guarding, and no masses palpated. Bowel sounds are normal. EXTREMITIES: FROM in all major joints, no edema, no cyanosis or clubbing. NEURO: Alert and oriented x 3. No acute neurological deficits. Speech is normal and follows commands. SKIN: Dry and warm Triage Information Reviewed: Yes Vital Signs On Initial Exam: Initial Vitals Temp Pulse Resp BP Pulse Ox 99.4 F 74 16 129/79 95 06/24/18 19:16 06/24/18 19:16 06/24/18 19:16 06/24/18 19:16 06/24/18 19:16 Vital Signs Reviewed: Yes Diagnostics - Vital Signs Vital Signs Temp Pulse Resp BP Pulse Ox 06/24/18 19:16 99.4 F 74 16 129/79 95 - Laboratory Result Diagrams: 06/24/18 19:50 06/24/18 19:50 Lab Statement: Any lab studies that have been ordered have been reviewed, and results considered in the medical decision making process. - Radiology CXR Radiology Interpretation Completed By: ED Physician Summary of Radiographic Findings: No acute pathology. - EKG 1950 Cardiac Rate: NL - 84 bpm EKG Rhythm: Sinus Rhythm Summary of EKG Findings: No ST elevation. Nml axis. Course/Dx - Course Assessment/Plan: Patient is a 18-year-old male who presents to the emergency department with a chief complaint of having a seizure. Patient has no history of seizures. Blood work without any significant abnormality. Chest x-ray has no acute pathology. EKG is a normal sinus rhythm without any ST elevation. There is no delta wave. I discussed the findings and test results with Dr. Levy for recommends for the patient to be discharged without any medications and follow-up at his office. Before the patient was discharged primary nurse and the patient reports that there were some a prolongations and bradycardia. The patient going down to 44 when he was in the ED. The patient denied any dizziness and the blood pressure maintained stable. Also she was informed by the EMS that there was a question if between having a seizure or a syncopal episode. Therefore this time I will consult cardiology. I discussed the case with and Dr. Lou from cardiology and her recommendations were I would not send the patient home. I believe that the patient may benefit from an echocardiogram for further workup any type of arrhythmia or hypertrophic cardiomyopathy. Therefore believe that the patient should be admitted to the hospital services. At this time the hospitalist is tied up with a code blue in the floor therefore the patient will be signed out to Dr. Mariano requesting for the patient to be admitted to the hospital services. Patient is hemodynamically stable. The patient agrees for admission. - Differential Dx Differential Diagnoses Neuro: Positive: Other - Arrhythmia, hypertrophic cardiomyopathy, seizure, - Diagnoses Provider Diagnoses: Syncope - Physician Notifications Discussed Care Of Patient With: Pasquale Levy - neurology Time Discussed With Above Provider: 21:34 Instructed by Provider To: Have Pt Call For Appt. - If UA is negative, pt can f/ u with him, call office to make an appt. Discharge - Sign-Out/Discharge Documenting (check all that apply): Patient Departure - D/C Patient Received Moderate/Deep Sedation with Procedure: No - Discharge Plan Condition: Stable Disposition: ADMITTED TO [facility] - Billing Disposition and Condition Condition: STABLE Disposition: Admitted to [facility] - Attestation Statements Document Initiated by Scribe: Yes Documenting Scribe: Monico Brandon Provider For Whom Scribe is Documenting (Include Credential): Dr. Zhang Bond MD Scribe Attestation: IMonico, scribed for Dr. Zhang Bond MD on 06/27/18 at 0726. Scribe Documentation Reviewed: Yes Provider Attestation: The documentation as recorded by the scribe, Monico Brandon accurately reflects the service I personally performed and the decisions made by me, Dr. Zhang Bond MD Status of Scribrobert Document: Viewed
[2018-06-24 19:57] LABS: ABS Basophils 0 10^3/ul (0-0.2); ABS Eosinophils 0 10^3/ul (0-0.6); ABS Lymphocytes 1.7 10^3/ul (1.0-4.8); ABS Monocytes 0.6 10^3/ul (0-0.8); ABS Neutrophils 5.2 10^3/ul (1.5-7.7); ABS Nucleated RBC 0 10^3/ul; Eosinophil % 0.6 %; Hematocrit 39 % (42-52); Hemoglobin 13.2 g/dl (14.0-18.0); Mean Corpuscular HGB Conc 34 g/dl (31-36); Mean Corpuscular Hemoglobin 30 pg (27-31); Mean Corpuscular Volume 90 fL (80-94); Mean Platelet Volume 7.4 fL (7.4-10.4); Nucleated Red Blood Cells % 0; Platelet Count 229 10^3/ul (150-450); Red Blood Count 4.33 10^6/ul (4.00-5.40); Red Cell Distribution Width 14 % (10.5-15); White Blood Count 7.6 10^3/ul (3.5-10.8)
[2018-06-24 20:04] LABS: INR 1.05 (0.77-1.02)
[2018-06-24 20:14] LABS: ALT 18 U/L (7-52); AST 21 U/L (13-39); Albumin 4.2 g/dL (3.2-5.2); Albumin/Globulin Ratio 1.8 (1-3); Alkaline Phosphatase 48 U/L (34-104); Anion Gap 4 mmol/L (2-11); Blood Urea Nitrogen 17 mg/dL (6-24); CO2 Carbon Dioxide 27 mmol/L (22-32); Calcium 8.9 mg/dL (8.6-10.3); Chloride 104 mmol/L (101-111); EGFR African American 100.1 (>60); EGFR Non-African American 82.7 (>60); Globulin 2.3 g/dL (2-4); Glucose 102 mg/dL (70-100); Magnesium 1.9 mg/dL (1.9-2.7); Potassium 3.7 mmol/L (3.5-5.0); Sodium 135 mmol/L (135-145); Total Protein 6.5 g/dL (6.4-8.9)
[2018-06-24 20:20] LABS: Alcohol < 10 mg/dL (<10)
[2018-06-24 21:37] LABS: Urine Appearance Clear; Urine Bilirubin Negative (Negative); Urine Blood Negative (Negative); Urine Color Yellow; Urine Glucose Negative (Negative); Urine Ketones Negative (Negative); Urine Nitrite Negative (Negative); Urine Protein Negative (Negative); Urine Specific Gravity 1.012 (1.010-1.030); Urine Urobilinogen Negative (Negative)
[2018-06-24 21:54] LABS: Barbiturates Urine Screen None Detected (None Detect); Benzodiazepine Urine Screen None Detected (None Detect); Urine Cannabinoids Screen None Detected (None Detect)
--- NOTE | 2018-06-24 22:58 | ED ---
Progress - Progress Note Progress Note: This patient was signed out to Dr. Mariano from Dr. Bond upon provider shift change pending consultation with hospitalist and disposition. Course/Dx - Course Course Of Treatment: This patient was signed out to Dr. Mariano from Dr. Bond upon provider shift change pending hospitalist consult and disposition. We discussed patient care with Dr. Vaughn, hospitalist, and they agreed to admit the patient to [facility]. Patient will be admitted to [facility]. The patient is agreeable with this plan. Dx syncope. - Diagnoses Provider Diagnoses: Syncope - Provider Notifications Discussed Care Of Patient With: Mikki Vaughn Time Discussed With Above Provider: 23:37 Instructed by Provider To: Admit As Inpatient Discharge - Sign-Out/Discharge Documenting (check all that apply): Patient Departure - admit, Receiving Sign- Out Receiving patient FROM: Zhang Bond Patient Received Moderate/Deep Sedation with Procedure: No - Discharge Plan Condition: Stable Disposition: ADMITTED TO [facility] - Billing Disposition and Condition Condition: STABLE Disposition: Admitted to [facility] - Attestation Statements Document Initiated by Scribe: Yes Documenting Scribe: Giovanna Bennett Provider For Whom Hamibrobert is Documenting (Include Credential): Sallie Mariano MD Scribe Attestation: Giovanna Nash scribed for Sallie Mariano MD on 06/25/18 at 0623. Scribe Documentation Reviewed: Yes Provider Attestation: The documentation as recorded by the scribeGiovanna accurately reflects the service I personally performed and the decisions made by Gerda echevarria MD Status of Scribe Document: Viewed
[2018-06-25] MEDS ORDERED: Acetaminophen TAB* 325 MG PO PRN (00:40)
[2018-06-25] MEDS ORDERED: Ondansetron INJ* 2 MG/ML VIAL IV PRN (00:40)
[2018-06-25] MEDS ORDERED: Al Hydrox/Mg Hydrox/Simet LIQ* 30 ML UDC PO PRN (00:40)
--- NOTE | 2018-06-25 03:58 | HP ---
CC: [facility] * HISTORY AND PHYSICAL: DATE OF ADMISSION: 06/25/18 TIME OF EVALUATION: 0000. PRIMARY CARE PHYSICIAN: [facility]. CHIEF COMPLAINT: Collapse. HISTORY OF PRESENT ILLNESS: This is a 18-year-old male with an unremarkable past medical history, who was playing basketball this afternoon when he suddenly collapsed to the floor and became very stiff according to bystanders. EMS was called. The sugar was 81. The patient stated to the staff in the ER that while he was running he felt like things were flashing and there were segments missing in front of him and the next thing he remembers was waking up on the floor. The patient was sleeping when I arrived. He woke up, states the night before he pulled an all-nighter, working on a model for class, did not sleep all day. Decreased appetite. He states he probably had one meal in a span of 30 hours. He denies ever having a syncopal episode in the past. Denies ever having seizures. He states he went rowing that afternoon, felt fine , had a meal, the one meal that he had in 30 hours, and then went on to play basketball. He denied any lightheadedness. No chest pain. He states he normally exercises nearly daily, rowing, playing basketball, lifting weights, running, and denies ever getting chest pain, shortness of breath, or lightheadedness. No nausea, vomiting, or diarrhea. No abdominal pain. No urinary symptoms. No fever. The patient denies any urinary incontinence during the event or tongue biting. Otherwise, review of systems is negative. In the emergency room, the patient had labs, imaging, and was referred to the hospitalist service for further evaluation. PAST MEDICAL HISTORY: Unremarkable. MEDICATIONS: None. SOCIAL HISTORY: The patient is a freshman at [employer], studying [employer]. He is from [place]. His one parent is in [place]; his other parent is in [place]. He occasionally smokes. He occasionally drinks. No illicit drugs. Denies any alcohol over the past 24 hours. FAMILY HISTORY: Parents are healthy. No history of sudden cardiac . No history of seizure disorder. REVIEW OF SYSTEMS: A 14-point review of systems is as mentioned in the HPI, otherwise negative. PHYSICAL EXAMINATION GENERAL: In no acute distress, resting comfortably. VITAL SIGNS: Temp 99.4, pulse rate 51, respiratory rate 13, oxygen saturation 96 % on room air, blood pressure 112/56. HEENT: Head: Normocephalic. Pupils are dilated and reactive. Anicteric. Oropharynx: Mucous membranes moist. NECK: Supple. No lymphadenopathy. RESPIRATORY: Clear to auscultation. No wheezing, rhonchi, or rales. CARDIAC: Regular, bradycardia. No murmurs, rubs, or gallops. ABDOMEN: Soft, nontender, nondistended. EXTREMITIES: No clubbing, cyanosis, or edema. +2 DPs. NEUROLOGIC: Alert and oriented x3. No gross focal neurologic deficits. LABORATORY DATA/DIAGNOSTIC STUDIES: White count 7.6, hemoglobin 13.2, hematocrit 39, platelets 229. INR is 1.05. Sodium 135, potassium 3.7, chloride 104, bicarb 27, BUN 17, creatinine 1.13, glucose 102. Lactic acid 1.7. Mag is 1.9. TSH 2.8. UA is unremarkable. Toxicology is negative. Alcohol is negative. EKG shows normal sinus rhythm with early repolarization and R prime. ASSESSMENT AND PLAN: This is a 18-year-old male with an unremarkable past medical history, who had a syncopal episode while playing basketball. 1. Syncopal episode. Assessment: I suspect this is in the setting of not sleeping and not eating or drinking very much that he had a vasovagal event, less likely a seizure, but in the setting of sleep deprivation and stiffness, it is possible but the seizure like activity was likely related to his vasovagal event; however, it is not unreasonable to admit him overnight on telemetry, do an echo, exercise stress test, and an EEG. We will also add on a troponin and check a repeat troponin and check Lyme studies in the setting of bradycardia that he is showing in the ER and having 2-second pause as well and remains symptomatic from that. 2. FEN: Regular diet. 3. DVT prophylaxis: The patient scores a 0. We have encouraged ambulation. I also placed him on seizure precautions. 4. Code status: Full code. PATIENT TIME: Greater than 40 minutes were spent doing the history and physical , more than half of the time was spent in direct patient contact. [id number]/[facility] #: [id number] [facility] CENTERKrissy
--- NOTE | 2018-06-25 14:52 | EEG ---
ELECTROENCEPHALOGRAPHY: DATE OF STUDY: 06/25/18 DATE READ: 06/25/18 REFERRING PHYSICIAN: Dr. Mikki Vaughn. CLINICAL PROBLEM: This is a 18-year-old man who is fairly healthy, who was playing basketball yester day and he suddenly collapsed. He developed stiffness. There was some seizure activity reported. T his EEG was obtained to evaluate for epileptiform abnormalities or electrographic seizures. DURATION OF RECORDING: The recording was from 10:35 a.m. to 11:09 a.m. CLINICAL STATE: Waking and sleep. REPORT: The waking background showed appropriate organization with clearly defined anterior-posterio r voltage and frequency gradients. There was a well-defined posterior dominant rhythm of 10 Hz, whic h was symmetrical and showed normal reactivity. Anteriorly, there was an expected pattern of lower v oltage mixed faster frequency. Attenuation of the occipital rhythm accompanied drowsiness. The slee p background was appropriately organized with well-developed spindles and vertex waves. The sleep tr ansits showed appropriate morphology and bilaterally synchronous and symmetric. Hyperventilation and photic stimulation were not performed. Single electrode EKG showed a normal sinus rhythm with a rat e of 60 beats per minute. There were no epileptiform discharges or electrographic seizures. CLINICAL IMPRESSION: This is a normal waking and sleep EEG with no evidence of epileptiform discharg es or electrographic seizures. A normal interictal EEG does not exclude or support the diagnosis of epilepsy. Clinical correlation is recommended. [id number]/[facility] #: [id number]
[2018-06-25 16:22] VITALS: BP 129/62
--- NOTE | 2018-06-25 17:54 | ECHO ---
Patient: SKIP OBRIEN [facility] Rec#: [id number] : 2000 Date: 06/25/2018 Age: 18y Height: 191 cm / 75.2 in Weight: 82 kg / 180.7 lbs Sex: M BSA: 2.11 Room#: [facility] Admit Date#: 06/25/2018 Type: Inpatient Referring: Mikki Vaughn Reading: Claude Hassan MD Customer Account Specialist: Meenu Lord RDCS CC: [facility] Transthoracic Echocardiogram Indication: Syncope BP: 118/62 HR: 50 Rhythm: Bradycardia Findings History: No known cardiac history. Technical Comments: The study quality is good. Completed at 0830. Left Ventricle: The left ventricular chamber size is normal. There is no left ventricular hypertrophy. Global left ventricular wall motion and contractility are within normal limits. Left ventricular systolic function is at the lower limits of normal. The estimated ejection fraction is 50-55%. Normal left ventricular diastolic filling is observed. Left Atrium: The left atrial chamber size is normal. Right Ventricle: Moderator Band present. The right ventricle is mildly dilated. The right ventricular global systolic function is low normal. Right Atrium: The right atrium is mildly dilated. Aortic Valve: The aortic valve is trileaflet. There is no evidence of aortic valve thickening. There is no evidence of aortic regurgitation. There is no evidence of aortic stenosis. Mitral Valve: The mitral valve leaflets are mildly thickened. There is a trace of mitral regurgitation. There is no evidence of mitral stenosis. Tricuspid Valve: The tricuspid valve leaflets are normal. There is a physiologic tricuspid regurgitation. Unable to estimate the right ventricular systolic pressure. There is no tricuspid stenosis. Pulmonic Valve: The pulmonic valve appears normal. There is mild pulmonic regurgitation. There is no pulmonic stenosis. Pericardium: There is no significant pericardial effusion. Aorta: There is no dilatation of the ascending aorta. There is no dilatation of the aortic arch. The aortic root is normal in size. Pulmonary Artery: The main pulmonary artery appears normal. Venous: The inferior vena cava is dilated. There is an approximate 50% respiratory change in the inferior vena cava dimension. Summary: There was not any prior study for comparison. Conclusions Marked bradycardia 39-43 bpm during the study. Left ventricular systolic function is at the lower limits of normal. The estimated ejection fraction is 50-55%. The right ventricle is mildly dilated. The right atrium is mildly dilated. There is a trace of mitral regurgitation. There is a physiologic tricuspid regurgitation. Measurements Name Value Normal Range RVIDd (AP) 2D 2.9 cm (0.9 - 2.6) RVDdMajor (2D) 5 cm (2.2 - 4.4) RAd ISD 4CH 4.8 cm (3.4 - 4.9) RA (A4C)W 5.4 cm (2.9 - 4.6) IVSd (2D) 0.8 cm (0.6 - 1) LVPWd (2D) 0.7 cm (0.6 - 1) LVIDd (2D) 5.5 cm (3.6 - 5.4) LVIDs (2D) 4.1 cm - LV FS (2D) 25 % (25 - 45) Aortic Annulus 2.1 cm (1.4 - 2.6) Ao root diameter (2D) 3 cm (2.1 - 3.5) Ascending Ao 2.9 cm (2.1 - 3.4) Aortic arch 2.2 cm (1.8 - 3.4) LA dimension (AP) 2D 3.6 cm (2.3 - 3.8) LAd ISD 4CH 4.9 cm (2.9 - 5.3) LA ISD 4CH W 4.3 cm (2.5 - 4.5) Name Value Normal Range LA ESV BP (A/L) index 29 ml/m2 - Name Value Normal Range MV E-wave Vmax 0.7 m/sec - MV deceleration time 250 msec - MV A-wave Vmax 0.2 m/sec - MV E:A ratio 3.4 ratio - LV septal e' Vmax 0.14 m/sec - LV lateral e' Vmax 0.17 m/sec - LV E:e' septal ratio 5 ratio - LV E:e' lateral ratio 4.1 ratio - Name Value Normal Range AV Vmax 1.1 m/sec - AV VTI 24 cm - AV peak gradient 5 mmHg - AV mean gradient 3 mmHg - LVOT Vmax 0.8 m/sec - LVOT VTI 18 cm - LVOT peak gradient 3 mmHg - LVOT mean gradient 1 mmHg - MC Vmax 1.1 m/sec - Name Value Normal Range IVC diameter 2.2 cm - Name Value Normal Range PV Vmax 0.9 m/sec - PV peak gradient 3 mmHg - NY end-diastolic Vmax 0.6 m/sec - PA end-diastolic pressur1 mmHg -
--- NOTE | 2018-06-25 21:54 | DS ---
CC: [facility]; Dr. Nicole Browne; Dr. Levy.* DISCHARGE SUMMARY: DATE OF ADMISSION: 06/24/18 DATE OF DISCHARGE: 06/25/18 ATTENDING PHYSICIAN: Dr. Nicole Browne* (dictated by Yamini Guerrero NP) . PRIMARY CARE PROVIDER: [facility]. HOSPITAL COURSE: Please refer to the admitting H and P by Dr. Vaughn yesterday. 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 This was witnessed. EMS was called immediately. His blood sugar was normal. Patient states he did have some prodrome of symptoms of flashing and then he remembers waking up on the floor. He also endorsed lack of sleep, lack of eating properly, pulling all-nighters for class and then went to play some sports in which he subsequently passed out. The patient was given hydration with normal saline upon admission. Because of this event in his young age, we were concerned about congenital cardiac defect and possibility of seizure. The patient was on telemetry all night with no ectopy. He did have a stress echo that was negative and low risk. EEG was also negative. Troponins were also negative. Lyme studies are pending. He did have some mild bradycardia and then at one point a 2-second pause. However, he remained asymptomatic with no further changes after that. On the day of discharge, patient's workup was completely negative. He was feeling back to baseline. He endorsed no chest pain, no shortness of breath, no dizziness, no blurry vision, no visual disturbances and no further episodes of syncope or collapse. PHYSICAL EXAMINATION: His physical exam today reveals a well-appearing young man of his stated age, in no acute distress. Vital Signs: Blood pressure 129/ 62, heart rate 74, respiratory rate 16, O2 saturation 98% on room air with a temperature of 98.0. HEENT: Patient is atraumatic, normocephalic, PERRLA with nonicteric sclerae. Oral mucosa is moist. Tongue is midline. Neck is supple, nontender. No thyromegaly appreciated. No JVD noted. Cardiovascular: S1, S2 present. Rate and rhythm are currently regular. Positive S1, S2. No murmurs, gallops, or rubs noted. Lungs are clear bilaterally to auscultation with no wheezing, rhonchi or rales. Abdomen is soft, nontender, nondistended. Positive bowel sounds in all 4 quadrants. is deferred. Musculoskeletal: There is no clubbing, no cyanosis, no edema. He has +2 distal pulses palpable. Full steady gait, full range of motion. Gross motor and sensation are intact. Neurologic: Grossly intact with no focal deficits. Psychiatric: He is cooperative and appropriate. LABORATORY DATA: Admitting labs: WBC 7.6, RBC is 4.33, hemoglobin 13.2, hematocrit 39, platelets 229. Sodium 135, potassium 3.7, chloride 104, CO2 27, BUN 17, creatinine 1.13, glucose 102, lactic acid 1.7, calcium 8.9, magnesium 1.9, bilirubin 1.00. LFTs are normal. Troponins were negative at 0.00 x2. TSH was 2.80. Urinalysis was negative for any acute infective process and urine drug screen was also negative. IMAGING: Chest x-ray dated 06/24/18 showed no evidence of any acute cardiopulmonary disease. EKG this morning, his repeat EKG showed sinus bradycardia with no ectopy. DISCHARGE DIAGNOSES: Syncope and collapse likely secondary to sleep deprivation and vasovagal response, has been ruled out for seizures and for cardiac dysfunction. DISCHARGE MEDICATIONS: None. DISPOSITION: The patient will be discharged back to [facility]. He should follow up with [facility] within the next few days. He is also instructed to follow up with Dr. Levy from Neurology, who interpreted his EEG. Again, EEG was negative. However, if he has any further episodes, he is instructed to follow up with Dr. Levy as needed. DIET: Regular as tolerated. ACTIVITY: Progress activity as tolerated. TIME SPENT: Approximately 35 minutes on discharge planning, interpreting labs and diagnostic testing. YAMINI GUERRERO, SAMIR [id number]/[facility] #: [id number] ASHANTI
== END 2018-06-25 17:15 | disposition home or self-care (01) ==
LOC: ED 19:15 → MEDTELE 06-25 00:40
PROVIDERS: ADMIT Pediatrics; ATTEND Internal Medicine
DX: R55 Syncope and collapse (principal); G40.909 Epilepsy, unspecified, not intractable, without status epilepticus; R53.83 Other fatigue; Z72.0 Tobacco use; R41.3 Other amnesia
CPT/HCPCS: 36415; 71045; 80053; 80307; 80320; 81003; 83605; 83735; 84443; 84484; 85025; 85610; 86618; 93005; 93306; 95819; 96361; 96374; 99283; G0378; G0480

== ENCOUNTER 2019-06-08 13:24 | Emergency (ER) | payer OTHER ==
--- NOTE | 2019-06-08 14:09 | ED ---
Lower Extremity - HPI Summary HPI Summary: Patient is a 19-year-old male who presents emergency department for right ankle injury that occurred yesterday. Patient states he was playing basketball when right ankle inverted. Pain persisted today with difficulty walking and swelling. Patient notes he has sprained ankle on the past. Symptoms are mild in severity. Walking makes symptoms worse. Rest makes symptoms better. - History of Current Complaint Chief Complaint: EDExtremityLower Stated Complaint: ANKLE INJURY PER PT Time Seen by Provider: 06/08/19 13:53 Hx Obtained From: Patient Pain Intensity: 6 - Allergies/Home Medications Allergies/Adverse Reactions: Allergies Allergy/AdvReac Type Severity Reaction Status Date / Time No Known Allergies Allergy Verified 03/21/18 19:04 Home Medications: Home Medications NK [No Home Medications Reported] 06/08/19 [History Confirmed 06/08/19] PMH/Surg Hx/FS Hx/Imm Hx Previously Healthy: Yes Endocrine/Hematology History: Denies: Hx Diabetes Cardiovascular History: Denies: Hx Angina, Hx Coronary Artery Disease, Hx Hypercholesterolemia, Hx Hypertension, Hx Myocardial Infarction, Hx Pacemaker/ICD, Hx Valvular Heart Disease Respiratory History: Denies: Hx Asthma, Hx Chronic Obstructive Pulmonary Disease (COPD) Sensory History: Denies: Hx Contacts or Glasses, Hx Hearing Aid Opthamlomology History: Denies: Hx Contacts or Glasses Infectious Disease History: No Infectious Disease History: Denies: Traveled Outside the [place] in Last 30 Days - Family History Known Family History: Positive: Non-Contributory Negative: Cardiac Disease, Hypertension, Diabetes Family History: neg: sz - Social History Occupation: Student Lives: Dormitory/Roommates Alcohol Use: Occasionally Hx Substance Use: No Substance Use Type: Reports: None Hx Tobacco Use: Yes Smoking Status (MU): Light Every Day Tobacco Smoker Type: Cigarettes Amount Used/How Often: very rare Have You Smoked in the Last Year: Yes Review of Systems - ROS Summary Review of Systems Summary: NK [No Home Medications Reported] 06/08/19 [History Confirmed 06/08/19] Positive: Other - pain and swelling right ankle Skin: Negative Neurological/Mental Status: Negative Negative: Weakness, Paresthesia, Numbness All Other Systems Reviewed And Are Negative: Yes Physical Exam Triage Information Reviewed: Yes Vital Signs On Initial Exam: Initial Vitals Temp Pulse Resp BP Pulse Ox 98.1 F 71 18 133/74 97 06/08/19 13:29 02/18/20 13:29 06/08/19 13:29 06/08/19 13:29 06/08/19 13:29 Vital Signs Reviewed: Yes Appearance: Positive: Well-Appearing - Patient lying in bed in no acute distress. Skin: Positive: Warm, Dry Head/Face: Positive: Normal Head/Face Inspection Eyes: Positive: Normal, EOMI Neck: Positive: Supple Musculoskeletal: Positive: Other - Marked edema noted over right lateral malleolus with pain on palpation. Good palpable pedal pulse. No palpable foot pain or pain at the base of the fifth metatarsal. Achilles tendon is intact. No proximal knee or tib-fib pain. No breaks in the skin. Neurological: Positive: Normal, CN Intact II-III Psychiatric: Positive: Affect/Mood Appropriate Procedures - Sedation Patient Received Moderate/Deep Sedation with Procedure: No - Splinting Right Lower Extremity Pre-Made Type: Cam Walker Pre-Proc Neuro Vasc Exam: normal Post-Proc Neuro Vasc Exam: normal Splint Applied by Provider: [facility] - Vital Signs Vital Signs Temp Pulse Resp BP Pulse Ox 06/08/19 13:29 98.1 F 71 18 133/74 97 - Laboratory Lab Statement: Any lab studies that have been ordered have been reviewed, and results considered in the medical decision making process. Lower Extremity Course/Dx - Course Course Of Treatment: Ankle x-ray shows avulsion of the distal fibula with joint effusion. Cam boot placed with crutches. We'll have patient follow-up with orthopedics this week. Ice and elevate intermittently. Anti-inflammatories or pain as directed. Patient understands and agrees with plan. - Diagnoses Differential Diagnosis/HQI/PQRI: Positive: Fracture (Closed), Sprain, Strain Provider Diagnoses: Closed avulsion fracture of distal end of fibula, Ankle effusion Discharge ED - Sign-Out/Discharge Documenting (check all that apply): Patient Departure - Discharge Plan Condition: Good Disposition: HOME Patient Education Materials: Ankle Fracture (ED) Referrals: Jhonathan Flores MD [Medical Doctor] - Additional Instructions: Call the orthopedic clinic today to schedule an appointment Use crutches for walking Keep boot in place Ice and elevate Tylenol or Motrin for pain as directed Return to ER if symptoms change or worsen - Billing Disposition and Condition Condition: GOOD Disposition: Home - Attestation Statements Provider Attestation: I was available for consult. This patient was seen by the KENY. The patient was not presented to, seen by, or examined by me. -Lisa
[2019-06-08 15:28] VITALS: BP 00/00
== END 2019-06-08 15:26 | disposition home or self-care (01) ==
LOC: ED 13:24
DX: S82.831A Other fracture of upper and lower end of right fibula, initial encounter for closed fracture (principal); M25.471 Effusion, right ankle; X58.XXXA Exposure to other specified factors, initial encounter; Y93.67 Activity, basketball; Y92.9 Unspecified place or not applicable; F17.210 Nicotine dependence, cigarettes, uncomplicated
CPT/HCPCS: 99282